=== PATIENT | female | born 1985 | race Caucasian/White ===

== ENCOUNTER 2020-06-24 10:33 | Emergency (ER) | payer SELFPAY ==
[2020-06-24] MEDS ORDERED: cefTRIAXone 1 GM Vial IM ONE (11:32)
--- NOTE | 2020-06-24 11:38 | EDM.PDOC ---
ED HPI GENERAL MEDICAL PROBLEM - General Chief Complaint: ENT Problem Stated Complaint: R LOWER TOOTH PAIN Time Seen by Provider: 06/24/20 11:33 Source of Information: Reports: Patient History Limitations: Reports: No Limitations - History of Present Illness INITIAL COMMENTS - FREE TEXT/NARRATIVE: pt has a very large dental abcess which is bulging out from the rt lower gum line. This is very ttender. The pt is not able to open her mouth. She was advised that this coukld be easily opened and drained and she would get better faster but she did not want that done here. She has been uncomfortable. She is from [facility] and will be traveling basck there. Onset: Other ( started 2 days ago. ) Duration: Hour(s): Location: Reports: Face Associated Symptoms: Reports: No Other Symptoms Tooth/Teeth Pain Score (Numeric/FACES): 8 - Related Data Allergies Allergy/AdvReac Type Severity Reaction Status Date / Time No Known Allergies Allergy Verified 06/24/20 11:19 Home Meds: Home Meds NK [No Known Home Meds] 06/24/20 [History] Past Medical History [employer] History: Reports: - Past Surgical History HEENT Surgical History: Reports: Adenoidectomy, Tonsillectomy Female Surgical History: Reports: Section Social & Family History - Tobacco Use Tobacco Use Status *Q: Current Every Day Tobacco User Years of Tobacco use: 15 Packs/Tins Daily: 0.2 - Caffeine Use Caffeine Use: Reports: Coffee, Energy Drinks, Soda - Recreational Drug Use Recreational Drug Use: No ED ROS ENT - Review of Systems Review Of Systems: See Below Constitutional: Reports: Diaphoresis, Decreased Appetite, Other ( severe discomfort. She is not able to open her mouth. ) HEENT: Reports: Dental Pain, Other (pt has a large dental abcess) Respiratory: Reports: No Symptoms Cardiovascular: Reports: No Symptoms Endocrine: Reports: No Symptoms GI/Abdominal: Reports: No Symptoms : Reports: No Symptoms Musculoskeletal: Reports: Hand Pain Skin: Reports: No Symptoms ED EXAM, ENT - Physical Exam Exam: See Below Text/Narrative:: pt arrived with facial swelling on the rt along the lower gum line. Exam Limited By: No Limitations General Appearance: Alert, Anxious, Moderate Distress Ears: Normal TMs Nose: Normal Inspection Mouth/Throat: Dental Abcess, Dental Pain, Dental Tenderness Head: Atraumatic Neck: Lymphadenopathy (R) Respiratory/Chest: No Respiratory Distress Course - Vital Signs Last Recorded V/S: Last Vital Signs Temp 37.3 C 06/24/20 11:22 Pulse 97 06/24/20 11:22 Resp 16 06/24/20 11:22 BP 175/112 H 06/24/20 11:22 Pulse Ox 97 06/24/20 11:22 - Orders/Labs/Meds Meds: Medications Discontinued Medications Generic Name Dose Route Start Last Admin Trade Name Ovidio PRN Reason Stop Dose Admin Ceftriaxone Sodium 1 gm 06/24/20 11:32 06/24/20 11:50 Rocephin IM 06/24/20 11:33 1 gm ONETIME ONE Administration Lidocaine HCl 5 ml 06/24/20 11:32 06/24/20 11:50 Xylocaine-Mpf 1% INJECT 06/24/20 11:33 2.1 ml ONETIME ONE Administration - Re-Assessments/Exams Free Text/Narrative Re-Assessment/Exam: 06/24/20 11:39 pt arrived with facial swelling and pain. Pt was givem rocephen 1 gm im with lidocaine. Departure - Departure Time of Disposition: 11:40 Disposition: Home, Self-Care 01 Condition: Fair Clinical Impression: Dental abscess - Discharge Information Instructions: Dental Abscess Referrals: PCP,None [Primary Care Provider] - Forms: ED Department Discharge Care Plan Goals: See dentist when she gets back to [facility]. Pt will start on antbiotics orally and use motrin for pain. Pt was not interested in using narcotics. Pt was given clindomycin 300mg tid. Sepsis Event Note (ED) - Evaluation Sepsis Screening Result: No Definite Risk
== END 2020-06-24 12:34 | disposition home or self-care (01) ==
LOC: JP.ED 10:33
DX: K04.7 Periapical abscess without sinus (principal); F17.210 Nicotine dependence, cigarettes, uncomplicated; Z90.49 Acquired absence of other specified parts of digestive tract
CPT/HCPCS: 96372; 99282; J0696; J2001